=== PATIENT | male | born 1970 | race Caucasian/White ===

== ENCOUNTER 2021-03-28 17:28 | Inpatient (IN) | payer BC ==
[~2021-03-28] VITALS: Ht 180.3 cm; Wt 99.3 kg
[2021-03-28 18:42] LABS: BASOPHILS # (AUTO) 0.1 (0.0-0.1); BASOPHILS % 0.6 % (0.0-1.0); EOSINOPHILS # (AUTO) 0.3 (0.0-0.4); EOSINOPHILS % 2.9 % (0.0-6.0); HEMOGLOBIN 14.5 g/dL (14.0-18.0); LYMPHOCYTES # (AUTO) 2.5 (1.0-3.2); LYMPHOCYTES % 25.8 % (18.0-39.1); MEAN CORPUSCULAR HEMOGLOBIN 29.9 pg (28-32); MEAN CORPUSCULAR VOLUME 90.7 fL (81-99); MONOCYTES % 10.4 % (4.4-11.3); NEUTROPHILS # (AUTO) 5.8 (2.1-6.9); NEUTROPHILS % 59.9 % (38.7-80.0); PLATELET COUNT 194 x10e3/uL (140-360); RED BLOOD COUNT 4.85 x10e6/uL (4.3-5.7); RED CELL DISTRIBUTION WIDTH 13.8 % (11.7-14.4)
[2021-03-28] MEDS ORDERED: MIDAZOLAM HCL 2 MG/2 ML VIAL ONE (18:45)
[2021-03-28] MEDS ORDERED: FENTANYL CITRATE/PF 100MCG/2 ML INJ ONE (18:45)
[2021-03-28] MEDS ORDERED: ALTEPLASE RECOMBINANT 2 MG/2 ML VIAL ONE (18:45)
[2021-03-28] MEDS ORDERED: LIDOCAINE HCL 2% LOCAL 20 ML VIAL ONE (18:46)
[2021-03-28] MEDS ORDERED: HEPARIN 25,000 UNIT DRIP IV ONE (18:46)
[2021-03-28] MEDS ORDERED: HEPARIN SOD/SOD CHLORIDE 2,000 ML ONE (18:47)
[2021-03-28] MEDS ORDERED: IOPAMIDOL 300MG/ML 100 ML INFUS..BTL IV ONE (18:47)
[2021-03-28] MEDS ORDERED: SODIUM CHLORIDE 0.9% 1000ML 1,000 ML ONE (18:47)
[2021-03-28] MEDS ORDERED: SODIUM CHLORIDE 0.9% 100 ML ONE (18:52)
[2021-03-28 18:53] LABS: INR 1.48; PROTHROMBIN TIME 18.2 seconds (11.9-14.5)
[2021-03-28 18:54] LABS: PARTIAL THROMBOPLASTIN TIME 31.6 seconds (23.8-35.5)
[2021-03-28 19:03] LABS: ALBUMIN/GLOBULIN RATIO 1.1 (0.8-2.0); ANION GAP 13.7 mmol/L (8-16); CALCIUM 9.1 mg/dL (8.4-10.2); CREATININE, SERUM 0.94 mg/dL (0.72-1.25); POTASSIUM 3.7 mmol/L (3.5-5.1)
[2021-03-28] MEDS ORDERED: HEPARIN SOD (PORCINE) 1000 UNIT/ML 30ML ONE (19:53)
[2021-03-28] MEDS ORDERED: SODIUM CHLORIDE 0.9% 1000ML 1,000 ML IV SCH (20:15)
[2021-03-28] MEDS ORDERED: ACETAMINOPHEN 325 MG TAB PO PRN ×2 (20:15→22:00)
[2021-03-28] MEDS ORDERED: ALTEPLASE IV ONE (20:15)
[2021-03-28] MEDS ORDERED: MORPHINE SULFATE INJ 4 MG/ML INJ 1ML IV PRN ×2 (20:15→22:00)
[2021-03-28] MEDS ORDERED: HYDRALAZINE HCL 20 MG/ML VIAL IV PRN ×2 (20:15→22:00)
[2021-03-28] MEDS ORDERED: ONDANSETRON HCL INJ 2MG/ML 2ML 2 MG/ML VIAL IV PRN ×2 (20:15→22:00)
[2021-03-28] MEDS ORDERED: HYDROCODONE/APAP 5MG-325MG TAB PO PRN ×2 (20:15→22:00)
[2021-03-28] MEDS ORDERED: HEPARIN 25,000 UNIT 1,000 UNIT in DEXTROSE 5% 250ML 250 ML IV SCH (20:15)
[2021-03-28] MEDS ORDERED: ZOLPIDEM TARTRATE 5 MG TAB PO PRN ×2 (20:15→22:00)
[2021-03-28] MEDS ORDERED: SODIUM CHLORIDE 0.9% IV ONE (20:15)
[2021-03-28 20:45] VITALS: BP 127/86
[2021-03-28 21:00] VITALS: BP 122/90
[2021-03-28 22:00] VITALS: BP 111/92
[2021-03-28] MEDS ORDERED: HYDROCODONE/APAP 5MG-325MG TAB ONE (22:04)
[2021-03-28] MEDS: SODIUM CHLORIDE 0.9% 1000ML 1,000 ML IV SCH (22:23)
[2021-03-28 23:00] VITALS: BP 130/85
[2021-03-28 23:59] VITALS: BP 118/78
[2021-03-29] VITALS (23 sets, daily range): BP systolic 104–131; BP diastolic 63–84
[2021-03-29] MEDS ORDERED: SODIUM CHLORIDE 0.9% 100 ML ONE (01:01)
[2021-03-29] MEDS ORDERED: ALTEPLASE RECOMBINANT 2 MG/2 ML VIAL ONE (01:02)
[2021-03-29] MEDS: SODIUM CHLORIDE 0.9% 1000ML 1,000 ML IV SCH ×2 (06:42→18:55)
[2021-03-29 07:19] LABS: BASOPHILS % 0.5 % (0.0-1.0); EOSINOPHILS # (AUTO) 0.2 (0.0-0.4); EOSINOPHILS % 2.6 % (0.0-6.0); HEMATOCRIT 39.7 % (38.2-49.6); HEMOGLOBIN 13.1 g/dL (14.0-18.0); LYMPHOCYTES # (AUTO) 1.8 (1.0-3.2); LYMPHOCYTES % 20.9 % (18.0-39.1); MEAN CORPUSCULAR HEMOGLOBIN 29.5 pg (28-32); MEAN CORPUSCULAR VOLUME 89.4 fL (81-99); MONOCYTES # (AUTO) 0.8 (0.2-0.8); MONOCYTES % 8.5 % (4.4-11.3); NEUTROPHILS # (AUTO) 5.9 (2.1-6.9); NEUTROPHILS % 67.2 % (38.7-80.0); PLATELET COUNT 149 x10e3/uL (140-360); RED BLOOD COUNT 4.44 x10e6/uL (4.3-5.7); RED CELL DISTRIBUTION WIDTH 13.7 % (11.7-14.4)
[2021-03-29] MEDS: ASPIRIN 81 MG ENTERIC COATED PO SCH (09:00)
[2021-03-29] MEDS ORDERED: ASPIRIN 81 MG ENTERIC COATED PO SCH (09:00)
[2021-03-29] MEDS ORDERED: ALTEPLASE RECOMBINANT IV SCH (10:30)
[2021-03-29] MEDS ORDERED: SODIUM CHLORIDE 0.9% IV SCH (10:30)
[2021-03-29] MEDS ORDERED: MIDAZOLAM HCL 2 MG/2 ML VIAL ONE ×4 (13:37→16:38)
[2021-03-29] MEDS ORDERED: LIDOCAINE HCL 2% LOCAL 20 ML VIAL ONE (13:37)
[2021-03-29] MEDS ORDERED: FENTANYL CITRATE/PF 100MCG/2 ML INJ ONE ×2 (13:37→15:22)
[2021-03-29] MEDS ORDERED: IOPAMIDOL 300MG/ML 100 ML INFUS..BTL IV ONE ×2 (13:38→16:31)
[2021-03-29] MEDS ORDERED: HEPARIN SOD/SOD CHLORIDE 2,000 ML ONE (13:38)
[2021-03-29] MEDS ORDERED: SODIUM CHLORIDE 0.9% 1000ML 1,000 ML ONE (13:38)
[2021-03-29 14:04] LABS: BASOPHILS % 0.4 % (0.0-1.0); EOSINOPHILS # (AUTO) 0.2 (0.0-0.4); EOSINOPHILS % 1.8 % (0.0-6.0); HEMATOCRIT 41.3 % (38.2-49.6); HEMOGLOBIN 13.4 g/dL (14.0-18.0); LYMPHOCYTES # (AUTO) 1.7 (1.0-3.2); LYMPHOCYTES % 18.7 % (18.0-39.1); MEAN CORPUSCULAR HEMOGLOBIN 29.5 pg (28-32); MEAN CORPUSCULAR HGB CONC 32.4 g/dL (31-35); MEAN CORPUSCULAR VOLUME 90.8 fL (81-99); MONOCYTES # (AUTO) 0.8 (0.2-0.8); MONOCYTES % 9.1 % (4.4-11.3); NEUTROPHILS # (AUTO) 6.3 (2.1-6.9); NEUTROPHILS % 69.4 % (38.7-80.0); PLATELET COUNT 138 x10e3/uL (140-360); RED BLOOD COUNT 4.55 x10e6/uL (4.3-5.7); RED CELL DISTRIBUTION WIDTH 13.6 % (11.7-14.4)
[2021-03-29] MEDS ORDERED: HEPARIN SOD/SOD CHLORIDE 1,000 ML ONE (14:11)
[2021-03-29] MEDS ORDERED: Vancomycin IV 1 GM VIAL ONE (14:21)
[2021-03-29] MEDS ORDERED: SODIUM CHLORIDE 0.9% 250ML 250 ML ONE (14:21)
[2021-03-29] MEDS ORDERED: TICAGRELOR 90 MG TABLET ONE (15:18)
[2021-03-29] MEDS ORDERED: ASPIRIN 325 MG TAB ONE (17:01)
[2021-03-29] MEDS ORDERED: ATORVASTATIN 40 MG TAB PO SCH (21:00)
[2021-03-30] VITALS (16 sets, daily range): BP systolic 114–146; BP diastolic 70–93
[2021-03-30] MEDS: SODIUM CHLORIDE 0.9% 1000ML 1,000 ML IV SCH (02:36)
[2021-03-30 05:44] LABS: BASOPHILS % 0.5 % (0.0-1.0); EOSINOPHILS # (AUTO) 0.2 (0.0-0.4); EOSINOPHILS % 2.4 % (0.0-6.0); HEMATOCRIT 35.4 % (38.2-49.6); HEMOGLOBIN 11.9 g/dL (14.0-18.0); LYMPHOCYTES # (AUTO) 1.5 (1.0-3.2); LYMPHOCYTES % 18.6 % (18.0-39.1); MEAN CORPUSCULAR HEMOGLOBIN 29.6 pg (28-32); MEAN CORPUSCULAR HGB CONC 33.6 g/dL (31-35); MEAN CORPUSCULAR VOLUME 88.1 fL (81-99); MONOCYTES % 12.3 % (4.4-11.3); NEUTROPHILS # (AUTO) 5.1 (2.1-6.9); NEUTROPHILS % 65.9 % (38.7-80.0); PLATELET COUNT 129 x10e3/uL (140-360); RED BLOOD COUNT 4.02 x10e6/uL (4.3-5.7); RED CELL DISTRIBUTION WIDTH 13.6 % (11.7-14.4)
[2021-03-30 06:16] LABS: ANION GAP 14.7 mmol/L (8-16); CALCIUM 8.3 mg/dL (8.4-10.2); CREATININE, SERUM 0.76 mg/dL (0.72-1.25); POTASSIUM 3.7 mmol/L (3.5-5.1)
[2021-03-30] MEDS: ASPIRIN 81 MG ENTERIC COATED PO SCH (08:32)
[2021-03-30] MEDS ORDERED: CLOPIDOGREL BISULFATE 75 MG TAB PO SCH (09:00)
== END 2021-03-30 13:35 | disposition home or self-care (01) | DRG 272 ==
LOC: ER 18:28 → ICU 21:14
PROVIDERS: ADMIT Internal Medicine Interventional Cardiology; ATTEND Internal Medicine Interventional Cardiology
PROC: 04CK3ZZ Extirpation of Matter from Right Femoral Artery, Percutaneous Approach (ICD-10-PCS; principal; 2021-03-28)
PROC: 3E05317 Introduction of Other Thrombolytic into Peripheral Artery, Percutaneous Approach (ICD-10-PCS; 2021-03-28)
PROC: 047 Lower Arteries, Dilation (ICD-10-PCS; 2021-03-28)
PROC: 047R3DZ Dilation of Right Posterior Tibial Artery with Intraluminal Device, Percutaneous Approach (ICD-10-PCS; 2021-03-28)
PROC: B44FZZ3 Ultrasonography of Right Lower Extremity Arteries, Intravascular (ICD-10-PCS; 2021-03-28)
PROC: 047T3ZZ Dilation of Right Peroneal Artery, Percutaneous Approach (ICD-10-PCS; 2021-03-28)
DX: T82.868A Thrombosis due to vascular prosthetic devices, implants and grafts, initial encounter (principal); I10 Essential (primary) hypertension; E78.5 Hyperlipidemia, unspecified; Z95.820 Peripheral vascular angioplasty status with implants and grafts; E66.9 Obesity, unspecified; Z68.30 Body mass index [BMI] 30.0-30.9, adult; Z87.891 Personal history of nicotine dependence; Z20.822 Contact with and (suspected) exposure to COVID-19; F17.290 Nicotine dependence, other tobacco product, uncomplicated
CPT/HCPCS: 36415; 37213; 37224; 37226; 37228; 37230; 37252; 75710; 80048; 80053; 85025; 85347; 85610; 85730; 99152; 99153; 99284; C1725; C1751; C1753; C1766; C1769; C1874; C1887; J1644; J2001; J2250; J2997; J3010; J3370; J7030; J7050; Q9967; U0002